=== PATIENT | male | born 1990 | race Caucasian/White ===

== ENCOUNTER 2023-01-10 11:26 | Emergency (ER) | payer BC ==
[~2023-01-10] VITALS: Ht 177.8 cm; Wt 124.5 kg
[2023-01-10 13:12] LABS: BASO # 0.03 K/mm3 (0.02-0.10); EOS % 1.4 % (0.0-4.0); HEMATOCRIT 48.4 % (42.0-52.0); HEMOGLOBIN 17.2 g/dL (13.5-18.0); LYMPH# 1.81 K/mm3 (1.50-4.00); MEAN CELL VOLUME 82 fl (78-100); MEAN CORPUSCULAR HEMOGLOBIN 29 pg (27-31); MEAN CORPUSCULAR HGB CONC 36 g/dL (33-37); MEAN PLATELET VOLUME 8.6 fl (7.4-10.4); MONO # 0.33 K/mm3 (0.20-0.80); PLATELET COUNT 216 K/mm3 (130-400); RED CELL DISTRIBUTION WIDTH 12.1 % (11.5-14.5)
[2023-01-10 13:15] LABS: ALBUMIN 4.7 g/dL (3.5-5.0); POTASSIUM 4.2 mmol/L (3.5-5.1)
[2023-01-10 13:17] LABS: CALCIUM 9.6 mg/dL (8.3-10.5)
[2023-01-10 13:18] LABS: TOTAL PROTEIN 7.1 g/dL (6.4-8.3)
[2023-01-10 13:20] LABS: TOTAL BILIRUBIN 0.8 mg/dL (0.2-1.2)
[2023-01-10] MEDS ORDERED: ZITHROMAX Z PA250 MG PO (14:05)
[2023-01-10 14:37] VITALS: BP 137/107
== END 2023-01-10 14:20 | disposition home or self-care (01) ==
LOC: ED 11:26
PROVIDERS: Physician Assistant
DX: J18.9 Pneumonia, unspecified organism (principal); Z88.0 Allergy status to penicillin; Z28.310 Unvaccinated for COVID-19